=== PATIENT | female | born 1990 | race Caucasian/White ===

== ENCOUNTER 2019-09-21 15:11 | Emergency (ER) | payer MEDICAID ==
[~2019-09-21] VITALS: Ht 165.1 cm; Wt 80.5 kg
[~2019-09-21 15:11] MED LIST: ACET1TAB43 PO; ACYC200C PO; BIRTH CONTROL; CALC; CALCIUM; CEPH500C PO; CPH500CIP PO; CRS350T PO; DIAZ5TAB3 PO; DOCU100C37 PO; FERR-57 PO; FERR-84 PO; FERR325T18 PO; FLUO10CA19; HYDR-229 PO; HYDR-3714 PO; HYDR1TAB PO; HYDR1TAB86; IBP600T1 PO; IBP800T; IBUP-1773 PO; METR500T PO; NAPR-243 PO; NORG1TAB; OMG1KC; ONDA8TAB9 PO; PHEN200T27 PO; PNV1TABL67 PO; PREN-93 PO; PREN1TAB19 PO; PREN1TAB39 PO; PREN1TAB71 PO; PRM25T; PRM25T PO; TRM50T PO; VITA100C15; VITA600C3
[2019-09-21 16:00] LABS: BASOPHILS % (AUTO) 0 % (0-10); EOSINOPHILS # (AUTO) 0.1 10^3/uL (0.0-0.3); EOSINOPHILS % (AUTO) 1 % (0-10); HEMATOCRIT 43 % (35-52); HEMOGLOBIN 14.7 G/DL (11.5-16.0); LYMPHOCYTES # (AUTO) 2.6 X 10^3 (1.0-4.0); LYMPHOCYTES % (AUTO) 32 % (12-44); MEAN CORPUSCULAR HEMOGLOBIN 29 PG (25-34); MEAN CORPUSCULAR HGB CONC 34 G/DL (32-36); MEAN CORPUSCULAR VOLUME 86 FL (80-99); MEAN PLATELET VOLUME 10.1 FL (7.4-10.4); MONOCYTES # (AUTO) 0.6 X 10^3 (0.0-1.0); MONOCYTES % (AUTO) 8 % (0-12); NEUTROPHILS # (AUTO) 4.7 X 10^3 (1.8-7.8); NEUTROPHILS % (AUTO) 59 % (42-75); PLATELET COUNT 337 10^3/uL (130-400); RED CELL DISTRIBUTION WIDTH 13.8 % (10.0-14.5)
[2019-09-21 16:00] LABS: BILIRUBIN,URINE NEGATIVE (NEGATIVE); CLARITY,URINE CLEAR; COLOR,URINE YELLOW; GLUCOSE, URINE (UA) NEGATIVE (NEGATIVE); KETONES,URINE NEGATIVE (NEGATIVE); LEUKOCYTE ESTERASE ,URINE NEGATIVE (NEGATIVE); NITRITE,URINE NEGATIVE (NEGATIVE); PH,URINE 6.5 (5-9); PROTEIN,URINE NEGATIVE (NEGATIVE)
[2019-09-21] MEDS ORDERED: LACTATED RINGERS 1,000 ML IV SCH (16:00)
[2019-09-21] MEDS ORDERED: PROCHLORPERAZINE 10 MG/2ML INJ (COMPAZINE) IV ONE (16:00)
[2019-09-21] MEDS ORDERED: diphenhydrAMINE 50 MG/ML INJ (BENADRYL) IVP ONE (16:00)
--- NOTE | 2019-09-21 16:04 | ED GI ---
General Chief Complaint: Abdominal/GI Problems Stated Complaint: NAUSEA, VOMITING Nursing Triage Note: Pt amb to triage with c/o nausea, vomiting, and diarrhea. Pt reports symptoms have been persistant for x3 days (09/18/19). Pt reports she was seen @ Dr. Gonzalez office on 09/20/19 where he gave her IM zofran and referred her to this ED if s/s continued. Denies fever or chills. Sepsis Screen: No Definite Risk Source of Information: Patient Exam Limitations: No Limitations History of Present Illness Date Seen by Provider: Sep 21, 2019 Time Seen by Provider: 15:59 Initial Comments Has been taking oral Zofran at home intermittently for the past 2 months without much relief. She does smoke marijuana, states she used to smoke it daily, now she is only smoking at about twice a week. She denies any improvement with hot showers Timing/Duration: Other (2months) Severity/Quality: Moderate Location: Other Radiation: No Radiation Activities at Onset: None Associated Symptoms: Nausea/Vomiting Allergies and Home Medications Allergies Coded Allergies: morphine (Unverified Allergy, Mild, vomiting, 12/01/09) aspirin (Unverified Allergy, Unknown, 03/24/15) Home Medications Docusate Sodium 100 Mg Capsule, 100 MG PO BID PRN for CONSTIPATION Prescribed by: ÁNGELA MUKHERJEE on 07/24/16325 Ferrous Sulfate 325 Mg Tablet, 325 MG PO BID Prescribed by: MILENA CA on 07/25/16 0633 Ibuprofen 600 Mg Tablet, 600 MG PO Q6H Prescribed by: ÁNGELA MUKHERJEE on 07/24/16325 Pnv with Ca,No.72/Iron/FA 1 Each Tablet, 1 EA PO DAILY@0700 Prescribed by: ÁNGELA UMKHERJEE on 07/24/16325 Vit/Iron Fumarate/FA 1 Each Tablet, 1 EACH PO DAILY, (Reported) Patient Home Medication List Home Medication List Reviewed: Yes Review of Systems Review of Systems Constitutional: see HPI; No chills, No fever EENTM: No Symptoms Reported Respiratory: No Symptoms Reported Gastrointestinal: See HPI; Denies Abdominal Pain; Diarrhea, Nausea; Denies Vomiting Genitourinary: No Symptoms Reported Musculoskeletal: no symptoms reported Skin: no symptoms reported Psychiatric/Neurological: No Symptoms Reported Endocrine: No Symptoms Reported Hematologic/Lymphatic: No Symptoms Reported Past Oiftwei-Dywykd-Awnhzm Hx Patient Social History Alcohol Use: Rarely Uses Number of Drinks Today: 0 Recreational Drug Use: Yes Drug of Choice: thc Smoking Status: Current Everyday Smoker Type Used: Cigarettes 2nd Hand Smoke Exposure: Yes Recent Foreign Travel: No Contact w/Someone Who Travel: No Recent Infectious Disease Expo: No Recent Hopitalizations: Yes (PSYCH PROBLEMS (SEE PSYCH HISTORY)) Immunizations Up To Date Tetanus Booster (TDap): Less than 5yrs Seasonal Allergies Seasonal Allergies: No Past Medical History Surgeries: Yes (cyst removed from rt ovary) Appendectomy, Gallbladder Respiratory: No Cardiac: No Neurological: No Reproductive Disorders: No Female Reproductive Disorders: Denies Sexually Transmitted Disease: Yes (CHLAMYDIA X2, HSV) HIV/AIDS: No Gastrointestinal: No Musculoskeletal: Yes Scoliosis Endocrine: Yes (possible thyroid problem, HYPOGLYCEMIC) Loss of Vision: Denies Hearing Impairment: Denies Cancer: No Psychosocial: Yes (BiPolar) Anxiety, Depression Integumentary: Yes Herpes Blood Disorders: No Adverse Reaction/Blood Tranf: No Family Medical History AIDS 19 FATHER Asthma 03 MOTHER maternal grandma Cancer maternal grandpa Cardiovascular disease 03 MOTHER (Heart Attack at age 32) Colon cancer paternal grandfather Family history: Diabetes mellitus maternal grandma Family history: Hypertension Hypertension maternal grandma maternal grandpa Myocardial infarction 03 MOTHER, Onset:32 Psychosocial problem 03 MOTHER (Bipolar) maternal grandpa (Depression) Substance abuse maternal grandpa 19 FATHER Physical Exam Vital Signs Vital Signs - First Documented 09/21/19 15:16 Temp 37.0 Pulse 97 Resp 15 B/P (MAP) 146/92 (110) O2 Delivery Room Air Capillary Refill : Less Than 3 Seconds Height/Weight/BMI Height: 5'6.00" Weight: 160lbs. 4.0oz. 72.316319gd; 29.00 BMI Method:Estimated General Appearance: WD/WN, no apparent distress HEENT: PERRL/EOMI, normal ENT inspection Neck: non-tender, full range of motion Respiratory: normal breath sounds, no respiratory distress, no accessory muscle use Cardiovascular: regular rate, rhythm, no murmur Gastrointestinal: normal bowel sounds, soft; No tenderness Extremities: normal range of motion, non-tender Neurologic/Psychiatric: alert, normal mood/affect, oriented x 3 Skin: normal color, warm/dry Progress/Results/Core Measures Results/Orders Lab Results Laboratory Tests Test 09/21/19 15:30 09/21/19 15:35 Range/Units Urine Color YELLOW Urine Clarity CLEAR Urine pH 6.5 5-9 Urine Specific [place] 1.020 1.016-1.022 Urine Protein NEGATIVE NEGATIVE Urine Glucose (UA) NEGATIVE NEGATIVE Urine Ketones NEGATIVE NEGATIVE Urine Nitrite NEGATIVE NEGATIVE Urine Bilirubin NEGATIVE NEGATIVE Urine Urobilinogen 0.2 < = 1.0 MG/DL Urine Leukocyte Esterase NEGATIVE NEGATIVE Urine RBC (Auto) NEGATIVE NEGATIVE Urine RBC NONE /HPF Urine WBC NONE /HPF Urine Squamous Epithelial Cells 5-10 /HPF Urine Crystals NONE /LPF Urine Bacteria TRACE /HPF Urine Casts NONE /LPF Urine Mucus SMALL H /LPF Urine Culture Indicated NO White Blood Count 8.0 4.3-11.0 10^3/uL Red Blood Count 5.01 4.35-5.85 10^6/uL Hemoglobin 14.7 11.5-16.0 G/DL Hematocrit 43 35-52 % Mean Corpuscular Volume 86 80-99 FL Mean Corpuscular Hemoglobin 29 25-34 PG Mean Corpuscular Hemoglobin Concent 34 32-36 G/DL Red Cell Distribution Width 13.8 10.0-14.5 % Platelet Count 337 130-400 10^3/uL Mean Platelet Volume 10.1 7.4-10.4 FL Neutrophils (%) (Auto) 59 42-75 % Lymphocytes (%) (Auto) 32 12-44 % Monocytes (%) (Auto) 8 0-12 % Eosinophils (%) (Auto) 1 0-10 % Basophils (%) (Auto) 0 0-10 % Neutrophils # (Auto) 4.7 1.8-7.8 X 10^3 Lymphocytes # (Auto) 2.6 1.0-4.0 X 10^3 Monocytes # (Auto) 0.6 0.0-1.0 X 10^3 Eosinophils # (Auto) 0.1 0.0-0.3 10^3/uL Basophils # (Auto) 0.0 0.0-0.1 10^3/uL Sodium Level 139 135-145 MMOL/L Potassium Level 3.6 3.6-5.0 MMOL/L Chloride Level 106 98-107 MMOL/L Carbon Dioxide Level 23 21-32 MMOL/L Anion Gap 10 5-14 MMOL/L Blood Urea Nitrogen 6 L 7-18 MG/DL Creatinine 0.83 0.60-1.30 MG/DL Estimat Glomerular Filtration Rate > 60 BUN/Creatinine Ratio 7 Glucose Level 84 70-105 MG/DL Calcium Level 9.2 8.5-10.1 MG/DL Corrected Calcium 8.5-10.1 MG/DL Total Bilirubin 0.5 0.1-1.0 MG/DL Aspartate Amino Transf (AST/SGOT) 20 5-34 U/L Alanine Aminotransferase (ALT/SGPT) 18 0-55 U/L Alkaline Phosphatase 58 40-136 U/L Total Protein 7.3 6.4-8.2 GM/DL Albumin 4.6 H 3.2-4.5 GM/DL Lipase 42 8-78 U/L Serum Test, Qualitative NEGATIVE NEGATIVE My Orders Orders - FRANCIS PATINO APRN Cbc With Automated Diff (09/21/19 15:50) Comprehensive Metabolic Panel (09/21/19 15:50) Lipase (09/21/19 15:50) Ua Culture If Indicated (09/21/19 15:50) Hcg,Qualitative Serum (09/21/19 15:50) Lactated Ringers (Lr 1000 Ml Iv Solution (09/21/19 16:00) Prochlorperazine Injection (Compazine In (09/21/19 16:00) Diphenhydramine Injection (Benadryl Inje (09/21/19 16:00) Medications Given in ED Current Medications Medications Dose Ordered Sig/Adarsh Route Start Time Stop Time Status Last Admin Dose Admin Diphenhydramine HCl 25 mg ONCE ONCE IVP 09/21/19 16:00 09/21/19 16:01 DC 09/21/19 15:57 25 MG Prochlorperazine Edisylate 5 mg ONCE ONCE IV 09/21/19 16:00 09/21/19 16:01 DC 09/21/19 15:58 5 MG Vital Signs/I&O 09/21/19 15:16 Temp 37.0 Pulse 97 Resp 15 B/P (MAP) 146/92 (110) O2 Delivery Room Air Blood Pressure Mean: 110 POS Departure Impression Primary Impression: Nausea and vomiting Qualified Codes: R11.2 - Nausea with vomiting, unspecified Disposition: 01 HOME, SELF-CARE Condition: Stable Departure-Patient Inst. Decision time for Depature: 16:42 Referrals: [facility] (PCP/Family) Primary Care Physician KAVON CROUCH BRETT D DO KIDO, TAKAAKI MD Patient Instructions: No Instuctions Given Add. Discharge Instructions: 1. Return to ER for any concerns 2. Follow-up with your doctor next week 3. Call one of the surgeons listed if nausea persists to discuss an upper GI scope if they feel this is appropriate. All discharge instructions reviewed with patient and/or family. Voiced understanding. Scripts Prochlorperazine Maleate (Compazine) 25 Mg Supp.rect 25 MG RC TID PRN for NAUSEA/VOMITING, #10 SUPP.RECT Prov: FRANCIS PATINO APRN 09/21/19 Prochlorperazine Maleate (Compazine) 10 Mg Tablet 10 MG PO TID PRN for NAUSEA/VOMITING, #10 TAB Prov: FRANCIS PATINO APRN 09/21/19 Pantoprazole Sodium (Protonix) 40 Mg Tablet.dr 40 MG PO DAILY, #30 TAB Prov: FRANCIS PATINO APRN 09/21/19 Work/School Note: Work Release Form Date Seen in the Emergency Department: Sep 21, 2019 Return to Work: Sep 22, 2019 FRANCIS PATINO APRN Sep 21, 2019 16:04 POS
[2019-09-21 16:14] LABS: ALANINE AMINOTRANSFERASE 18 U/L (0-55); ALBUMIN 4.6 GM/DL (3.2-4.5); ALKALINE PHOSPHATASE 58 U/L (40-136); BILIRUBIN,TOTAL 0.5 MG/DL (0.1-1.0); BUN/CREATININE RATIO 7; CALCIUM 9.2 MG/DL (8.5-10.1); CARBON DIOXIDE 23 MMOL/L (21-32); CHLORIDE 106 MMOL/L (98-107); CREATININE SERUM 0.83 MG/DL (0.60-1.30); GFR ESTIMATED > 60; GLUCOSE 84 MG/DL (70-105); LIPASE 42 U/L (8-78); POTASSIUM 3.6 MMOL/L (3.6-5.0); SODIUM 139 MMOL/L (135-145); TOTAL PROTEIN 7.3 GM/DL (6.4-8.2)
[2019-09-21 16:20] LABS: BACTERIA,URINE TRACE /HPF
[2019-09-21] MEDS ORDERED: PANT40TA2 PO (16:45)
[2019-09-21] MEDS ORDERED: PROC25SU27 RC (16:45)
[2019-09-21] MEDS ORDERED: PROC-1 PO (16:45)
[2019-09-21 16:54] VITALS: BP 116/79
== END 2019-09-21 16:54 | disposition home or self-care (01) ==
LOC: EDUNIT# 15:11 → ER 15:14
DX: R11.2 Nausea with vomiting, unspecified (principal); F41.9 Anxiety disorder, unspecified; F31.9 Bipolar disorder, unspecified; F17.210 Nicotine dependence, cigarettes, uncomplicated; Z88.5 Allergy status to narcotic agent; Z88.6 Allergy status to analgesic agent; Z90.49 Acquired absence of other specified parts of digestive tract; Z82.49 Family history of ischemic heart disease and other diseases of the circulatory system; Z80.0 Family history of malignant neoplasm of digestive organs
CPT/HCPCS: 36415; 80053; 81000; 83690; 84703; 85025

== ENCOUNTER 2021-02-24 02:43 | Emergency (ER) | payer MEDICAID ==
[~2021-02-24] VITALS: Ht 162.6 cm; Wt 79.4 kg
[~2021-02-24 02:43] MED LIST changes: -DIAZ5TAB3 PO; +DIAZ5TAB49 PO; +PANT40TA2 PO; +PROC-1 PO; +PROC25SU27 RC
--- NOTE | 2021-02-24 03:05 | ED Head Injury ---
General Chief Complaint: Head/Cervical Problems Stated Complaint: HEAD INJ, BLEEDING FROM HEAD,LOC Source: patient, family Exam Limitations: no limitations History of Present Illness Date Seen by Provider: February 24, 2021 Time Seen by Provider: 02:55 Initial Comments Patient is a 31-year-old female who presents to the emergency department today with a chief complaint of fall, loss of consciousness and laceration to the face. Patient had been drinking this evening at a green party and went to the bathroom. She states that she believes she tripped over a step in the bathroom and fell. Significant other is present at the bedside and states that she was definitely unconscious when he found her. Reportedly it was brief. Patient denies any nausea. She does have a headache that extends from "presybeterian to presybeterian". Patient does not have any past medical history to speak of. She is not on blood thinners. She does not have any vision changes. She denies neck pain. No other complaints of injury. All other review of systems reviewed and negative except as stated above. Occurred: just prior to arrival Severity: moderate Location: frontal Method of Injury: fell Loss of Consciousness: brief (seconds) Associated Systoms: Headaches Allergies and Home Medications Allergies Coded Allergies: morphine (Unverified Allergy, Mild, vomiting, 12/01/09) aspirin (Unverified Allergy, Unknown, 03/24/15) Home Medications Docusate Sodium 100 Mg Capsule, 100 MG PO BID PRN for CONSTIPATION Prescribed by: ÁNGELA MUKHERJEE on 07/24/16325 Ferrous Sulfate 325 Mg Tablet, 325 MG PO BID Prescribed by: MILENA CA on 07/25/16 0633 Ibuprofen 600 Mg Tablet, 600 MG PO Q6H Prescribed by: ÁNGELA MUKHERJEE on 07/24/16325 Pantoprazole Sodium 40 Mg Tablet.dr, 40 MG PO DAILY Prescribed by: FRANCIS PATINO on 09/21/191644 Pnv with Ca,No.72/Iron/FA 1 Each Tablet, 1 EA PO DAILY@0700 Prescribed by: ÁNGELA MUKHERJEE on 07/24/16325 Vit/Iron Fumarate/FA 1 Each Tablet, 1 EACH PO DAILY, (Reported) Prochlorperazine Maleate 10 Mg Tablet, 10 MG PO TID PRN for NAUSEA/VOMITING Prescribed by: FRANCIS PATINO on 09/21/191644 Prochlorperazine Maleate 25 Mg Supp.rect, 25 MG RC TID PRN for NAUSEA/VOMITING Prescribed by: FRANCIS PATINO on 09/21/19 6324 Patient Home Medication List Home Medication List Reviewed: Yes Review of Systems Review of Systems Constitutional: see HPI Eyes: No Symptoms Reported Ears, Nose, Mouth, Throat: no symptoms reported Respiratory: no symptoms reported Cardiovascular: no symptoms reported Gastrointestinal: no symptoms reported Genitourinary: no symptoms reported Musculoskeletal: no symptoms reported Skin: other (Laceration) Psychiatric/Neurological: Headache All Other Systems Reviewed Negative Unless Noted: Yes Past Kiwpzdr-Tmjkms-Scnodh Hx Patient Social History Drug of Choice: thc Type Used: Cigarettes 2nd Hand Smoke Exposure: Yes Recent Hopitalizations: Yes (PSYCH PROBLEMS (SEE PSYCH HISTORY)) Immunizations Up To Date Tetanus Booster (TDap): Less than 5yrs Seasonal Allergies Seasonal Allergies: No Past Medical History Surgeries: Yes (cyst removed from rt ovary) Appendectomy, Gallbladder Respiratory: No Cardiac: No Neurological: No Reproductive Disorders: No Female Reproductive Disorders: Denies Sexually Transmitted Disease: Yes (CHLAMYDIA X2, HSV) HIV/AIDS: No Gastrointestinal: No Musculoskeletal: Yes Scoliosis Endocrine: Yes (possible thyroid problem, HYPOGLYCEMIC) Loss of Vision: Denies Hearing Impairment: Denies Cancer: No Psychosocial: Yes (BiPolar) Anxiety, Depression Integumentary: Yes Herpes Blood Disorders: No Adverse Reaction/Blood Tranf: No Family Medical History AIDS 19 FATHER Asthma 03 MOTHER maternal grandma Cancer maternal grandpa Cardiovascular disease 03 MOTHER (Heart Attack at age 32) Colon cancer paternal grandfather Family history: Diabetes mellitus maternal grandma Family history: Hypertension Hypertension maternal grandma maternal grandpa Myocardial infarction 03 MOTHER, Onset:32 Psychosocial problem 03 MOTHER (Bipolar) maternal grandpa (Depression) Substance abuse maternal grandpa 19 FATHER Physical Exam Vital Signs Vital Signs - First Documented 02/24/21 02:45 Temp 35.4 Pulse 97 Resp 16 B/P (MAP) 132/81 (98) Pulse Ox 99 O2 Delivery Room Air Capillary Refill : Height, Weight, BMI Height: 5'6.00" Weight: 160lbs. 4.0oz. 72.431399zv; 29.00 BMI Method:Estimated General Appearance: WD/WN, no apparent distress HEENT: PERRL/EOMI, normal ENT inspection, TMs normal Neck: non-tender, full range of motion, supple, normal inspection Cardiovascular: regular rate, rhythm Respiratory: lungs clear, normal breath sounds, no respiratory distress, no accessory muscle use Gastrointestinal: non tender, soft Extremities: non-tender, normal inspection Psychiatric: alert, oriented x 3 Crainal Nerves: normal hearing, normal speech, PERRL Coordination/Gait: normal gait Motor/Sensory: no motor deficit, no sensory deficit Skin: normal color, warm/dry, other (4 cm laceration just above the nasal bridge angulated extending to the galea) Eddie Coma Score Best Eye Response: (4) Open Spontaneously Best Verbal Response: (5) Oriented Best Motor Response: (6) Obeys Commands Procedures/Interventions Wound Location: Face Other Wound Location Forehead just above the nasal bridge Wound Length (cm): 4 Wound's Depth, Shape: superficial, into muscle, linear Wound Explored: clean Irrigated w/ Saline (ccs): 200 Betadine Prep?: Yes Anesthesia: Lidocaine w/ Epi Volume Anesthetic (ccs): 6 Suture: Prolene, Vicryl (4-0) Suture Size: 6-0 Number of Sutures: 7 Layer Closure?: 3 Number Deep Layer Sutures: 7 Sterile Dressing Applied?: No Progress 3 layered closure with 4-0 Vicryl sutures used to close the galea times 4 sutures. Subcu tissues were approximated with three 4-0 Vicryl sutures. Skin was closed with 6-0 Prolene times 7 sutures Patient tolerated the procedure very well. Good hemostasis was achieved. Skin came together nicely Progress/Results/Core Measures Results/Orders My Orders Orders - ANUM GOODRICH MD Ct Head Wo (02/24/21 03:01) Dipht,Pertuss(Acell),Tet Adult (Boostrix (02/24/21 03:15) Medications Given in ED Current Medications Medications Dose Ordered Sig/Adarsh Route Start Time Stop Time Status Last Admin Dose Admin Diphtheria/ Tetanus/Acell Pertussis 0.5 ml ONCE ONCE IM 02/24/21 03:15 02/24/21 03:16 DC 02/24/21 03:33 0.5 ML Vital Signs/I&O 02/24/21 02:45 Temp 35.4 Pulse 97 Resp 16 B/P (MAP) 132/81 (98) Pulse Ox 99 O2 Delivery Room Air Diagnostic Imaging Diagonstic Imaging: CT Plain Films/CT/US/NM/MRI: head Comments No acute intracranial abnormality identified on CT scan of the head without contrast Departure Impression Primary Impression: Facial laceration Qualified Codes: S01.81XA - Laceration without foreign body of other part of head, initial encounter Additional Impression: Concussion Qualified Codes: S06.0X1A - Concussion with loss of consciousness of 30 minutes or less, initial encounter Disposition: 01 HOME, SELF-CARE Condition: Stable Departure-Patient Inst. Decision time for Depature: 05:06 Referrals: [facility] [place] NO,LOCAL PHYSICIAN (PCP) Primary Care Physician Patient Instructions: Laceration Repair With Stitches ED, Concussion, Adult (DC) Add. Discharge Instructions: Drink plenty of fluids to stay well-hydrated. Take [id number] Tylenol extra strength, 2 tablets every 4-6 hours as needed for headache/pain. Limit your time on electronics, phone use, television for the next 24 to 48 h ours. This will help decrease the severity of headaches. Come back to the emergency room in 5 or 6 days to have your stitches removed. If you develop significant redness, swelling, drainage or fever please come back sooner to the emergency room for reevaluation. ANUM GOODRICH MD February 24, 2021 03:05
[2021-02-24] MEDS ORDERED: TETANUS,DIPTH,PERTUSS P/F (BOOSTRIX) 0.5 ML VIAL IM ONE (03:15)
[2021-02-24] MEDS ORDERED: ACETAMINOPHEN 500 MG TAB (TYLENOL) PO ONE (05:15)
[2021-02-24 05:18] VITALS: BP 131/70
--- NOTE | 2021-02-24 08:48 | Diagnostic Imaging Report ---
PROCEDURE: CT head without contrast. TECHNIQUE: Multiple contiguous axial images were obtained through the brain without the use of intravenous contrast. Auto Exposure Controls were utilized during the CT exam to meet ALARA standards for radiation dose reduction. DATE: February 24, 2021. COMPARISON: CT head and maxillofacial areas July 25, 2014. INDICATION: 31-year-old female, fall. Laceration to the forehead. FINDINGS: There is gas in the scalp in the region of the forehead with mild inflammatory stranding consistent with a penetrating type injury and small contusion. There is no identified radiopaque foreign body. There is no identified skull fracture. The ventricles and cerebral spinal fluid spaces are of normal size and configuration for the patient's age. There is no mass effect or midline shift. There is no acute intracranial hemorrhage. There is no abnormal extra-axial fluid collection. The visualized portions of the paranasal sinuses, mastoid air cells and middle ears are well aerated. IMPRESSION: 1. Soft tissue gas in the region of the forehead with mild inflammatory stranding consistent with a penetrating type injury and small contusion. 2. No identified skull fracture. 3. No identified acute intracranial abnormality. Dictated by: Dictated on workstation # [id number]
== END 2021-02-24 05:18 | disposition home or self-care (01) ==
LOC: EDUNIT# 02:43 → ER 02:45
DX: S06.0X9A Concussion with loss of consciousness of unspecified duration, initial encounter (principal); S01.81XA Laceration without foreign body of other part of head, initial encounter; F41.9 Anxiety disorder, unspecified; Z88.5 Allergy status to narcotic agent; Z88.8 Allergy status to other drugs, medicaments and biological substances; Z23 Encounter for immunization; Z77.22 Contact with and (suspected) exposure to environmental tobacco smoke (acute) (chronic); Z79.899 Other long term (current) drug therapy; W18.2XXA Fall in (into) shower or empty bathtub, initial encounter
CPT/HCPCS: 70450; 90715

== ENCOUNTER 2021-03-01 14:48 | Emergency (ER) | payer MEDICAID ==
[~2021-03-01] VITALS: Ht 162.5 cm; Wt 81.6 kg
[2021-03-01 14:57] VITALS: BP 125/86
== END 2021-03-01 15:03 | disposition home or self-care (01) ==
LOC: EDUNIT# 14:48 → ER 14:50
DX: Z48.02 Encounter for removal of sutures (principal)

== ENCOUNTER 2021-03-11 20:22 | Emergency (ER) | payer MEDICAID ==
[~2021-03-11] VITALS: Ht 162 cm; Wt 82.7 kg
--- NOTE | 2021-03-11 21:12 | ED General ---
General Chief Complaint: Cardiac/General Problems Stated Complaint: HIGH BP 191/118 Nursing Triage Note: reports intermittant high blood pressure/weakness x1 week. Nursing Sepsis Screen: No Definite Risk Source of Information: Patient Exam Limitations: No Limitations History of Present Illness Date Seen by Provider: March 11, 2021 Time Seen by Provider: 20:50 Initial Comments Patient is a 31-year-old who presents to the emergency department today with a chief complaint of intermittent high blood pressure over the course of the last week. Patient states that she was standing at her countertop this evening making dinner when she had a sudden onset of feeling "spacey" and not quite right. She got tremors and she felt generally weak. She states that she knows what hypoglycemia feels like and she felt different. She took her blood pressure and it was 191/118 on her home cuff that they have had for years. Patient has never been diagnosed with hypertension in the past. She denies chest pain, shortness of breath, abdominal pain. No severe headache no vision changes no unilateral numbness, weakness or tingling. No complaints of illness such as fevers, chills, cough, urinary complaints or GI complaints. She does state that she feels like she has been more thirsty than normal as of late. The last time she saw her primary care physician was at the onset of Covtn in the spring 2019. At that time she states she had basic laboratory studies done and all of them were normal. All other review of systems reviewed and negative except as stated. Timing/Duration: 1 Hour, 1 Day Associated Systoms: Denies Symptoms Allergies and Home Medications Allergies Coded Allergies: morphine (Unverified Allergy, Mild, vomiting, 12/01/09) aspirin (Unverified Allergy, Unknown, 03/24/15) Patient Home Medication List Home Medication List Reviewed: Yes Review of Systems Review of Systems Constitutional: see HPI, malaise EENTM: no symptoms reported Respiratory: no symptoms reported Cardiovascular: no symptoms reported Gastrointestinal: no symptoms reported Genitourinary: no symptoms reported Musculoskeletal: no symptoms reported Skin: no symptoms reported Psychiatric/Neurological: Paresthesia, Tremors All Other Systems Reviewed Negative Unless Noted: Yes Past Ugvdpji-Xhgblm-Mlcewq Hx Patient Social History Alcohol Use: Occasionally Uses Number of Drinks Today: AA Alcohol Beverage of Choice: Beer, Wine Drug of Choice: cannibus Smoking Status: Current Everyday Smoker Type Used: Cigarettes 2nd Hand Smoke Exposure: Yes Recent Infectious Disease Expo: No Recent Hopitalizations: No Immunizations Up To Date Tetanus Booster (TDap): Unknown Seasonal Allergies Seasonal Allergies: No Past Medical History Surgeries: Yes (cyst removed from rt ovary) Appendectomy, Gallbladder Respiratory: No Cardiac: No Neurological: No : No Reproductive Disorders: No Female Reproductive Disorders: Ovarian Cyst Sexually Transmitted Disease: Yes (CHLAMYDIA X2, HSV) HIV/AIDS: No Genitourinary: No Gastrointestinal: Yes Gall Bladder Disease Musculoskeletal: Yes Scoliosis Endocrine: Yes (possible thyroid problem, HYPOGLYCEMIC) HEENT: No Loss of Vision: Denies Hearing Impairment: Denies Cancer: No Psychosocial: Yes (BiPolar) Anxiety, Depression Integumentary: Yes Herpes Blood Disorders: No Adverse Reaction/Blood Tranf: No Family Medical History AIDS 19 FATHER Asthma 03 MOTHER maternal grandma Cancer maternal grandpa Cardiovascular disease 03 MOTHER (Heart Attack at age 32) Colon cancer paternal grandfather Family history: Diabetes mellitus maternal grandma Family history: Hypertension Hypertension maternal grandma maternal grandpa Myocardial infarction 03 MOTHER, Onset:32 Psychosocial problem 03 MOTHER (Bipolar) maternal grandpa (Depression) Substance abuse maternal grandpa 19 FATHER Physical Exam Vital Signs Vital Signs - First Documented 03/11/21 20:37 Temp 36.8 Pulse 82 Resp 18 B/P (MAP) 139/84 (102) Pulse Ox 98 O2 Delivery Room Air Capillary Refill : Less Than 3 Seconds Height, Weight, BMI Height: 5'6.00" Weight: 160lbs. 4.0oz. [id number]; 31.00 BMI Method:Actual General Appearance: No Apparent Distress, WD/WN HEENT: Normal ENT Inspection Neck: Full Range of Motion Respiratory: Lungs Clear, Normal Breath Sounds, No Accessory Muscle Use, No Respiratory Distress Cardiovascular: Regular Rate, Rhythm Gastrointestinal: Normal Bowel Sounds, Non Tender, Soft Extremity: Normal Capillary Refill, Normal Inspection, Normal Range of Motion Neurologic/Psychiatric: Alert, Oriented x3, No Motor/Sensory Deficits, Normal Mood/Affect, bobbin washer II-XII Norm as Tested Skin: Normal Color, Warm/Dry Procedures/Interventions Suture Size: 6-0 Progress/Results/Core Measures Suspected Sepsis Recent Fever Within 48 Hours: No Infection Criteria Present: None New/Unexplained Altered Menta: No Sepsis Screen: No Definite Risk SIRS Temperature: Pulse: 82 Respiratory Rate: 18 Blood Pressure 139 /84 Mean: 102 Laboratory Tests 03/11/21 21:15: Creatinine 0.90 Results/Orders Lab Results Laboratory Tests Test 03/11/21 21:15 Range/Units Sodium Level 138 135-145 MMOL/L Potassium Level 3.7 3.6-5.0 MMOL/L Chloride Level 106 98-107 MMOL/L Carbon Dioxide Level 23 21-32 MMOL/L Anion Gap 9 5-14 MMOL/L Blood Urea Nitrogen 7 7-18 MG/DL Creatinine 0.90 0.60-1.30 MG/DL Estimat Glomerular Filtration Rate > 60 BUN/Creatinine Ratio 8 Glucose Level 76 70-105 MG/DL Calcium Level 9.2 8.5-10.1 MG/DL My Orders Orders - ANUM GOODRICH MD Basic Metabolic Panel (03/11/21 21:05) Vital Signs/I&O 03/11/21 20:37 Temp 36.8 Pulse 82 Resp 18 B/P (MAP) 139/84 (102) Pulse Ox 98 O2 Delivery Room Air Capillary Refill : Less Than 3 Seconds Blood Pressure Mean: 102 Departure Impression Primary Impression: History of high blood pressure Disposition: 01 HOME, SELF-CARE Condition: Stable Departure-Patient Inst. Decision time for Depature: 21:43 Referrals: OLIVIA WOODS MD (PCP/Family) Primary Care Physician Add. Discharge Instructions: Drink plenty of fluids to stay well-hydrated. Please obtain a new blood pressure cuff and monitor your blood pressure over the next week. Call and follow-up with your primary care physician. Come back to the emergency room for any new, concerning or emergent symptoms. Copy Copies To 1: OLIVIA WOODS MD, KATHRYN M MD March 11, 2021 21:12
[2021-03-11 21:43] LABS: BUN/CREATININE RATIO 8; CALCIUM 9.2 MG/DL (8.5-10.1); CARBON DIOXIDE 23 MMOL/L (21-32); CHLORIDE 106 MMOL/L (98-107); GFR ESTIMATED > 60; GLUCOSE 76 MG/DL (70-105); POTASSIUM 3.7 MMOL/L (3.6-5.0); SODIUM 138 MMOL/L (135-145)
[2021-03-11 21:52] VITALS: BP 112/71
== END 2021-03-11 21:54 | disposition home or self-care (01) ==
LOC: EDUNIT# 20:22 → ER 20:23
DX: R03.0 Elevated blood-pressure reading, without diagnosis of hypertension (principal); F17.210 Nicotine dependence, cigarettes, uncomplicated; Z88.5 Allergy status to narcotic agent; Z88.6 Allergy status to analgesic agent
CPT/HCPCS: 36415; 80048

== ENCOUNTER 2021-04-15 12:56 | Emergency (ER) | payer MEDICAID ==
[~2021-04-15] VITALS: Ht 165 cm; Wt 81.6 kg
[2021-04-15 13:12] VITALS: BP 159/80
--- NOTE | 2021-04-15 13:48 | ED General ---
General Chief Complaint: Dizziness/Syncope Stated Complaint: DIZZINESS, WEAKNESS, HEAD INJURY Nursing Triage Note: PT PRESENTS TO ED WITH COMPLAINTS OF INTERMITTENT DIZZINESS AND GENERALIZED FATIGUE SINCE SHE FELL ONE MONTH AGO AND HIT HER HEAD IN HER BATHROOM. PT REPORTS SHE WAS SEEN IN ED AFTER AND HAD A NORMAL CT SCAN. PT REPORTS SHE HAS SEEN HER DR LEA WELL WHEN THE DIZZINESS CONTINUED AND HAD ANOTHER CT SCAN THEN BUT WAS TOLD IT CAME BACK NORMAL. Nursing Sepsis Screen: No Definite Risk Source of Information: Patient, Other Exam Limitations: No Limitations History of Present Illness Date Seen by Provider: Apr 15, 2021 Time Seen by Provider: 13:17 Initial Comments Patient to the ER by private conveyance from home with her significant other and chief complaint for the past month she has been having panic attacks, tiredness, difficulty concentrating, off balance, irritable. About 1 month ago she was drinking for her brother's graduation democrat and lost her balance and passed out in the bathroom striking her forehead on tile. She had a negative CT and had to have stitches on her forehead. She continued to have concussion syndrome and went to Dr. Lea, her primary care provider who repeated the CT which was still negative. She says the symptoms are intermittent. 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 Her panic attacks have been characterized by feeling shaky, anxious, short of breath, rapid breathing, numbness and tingling around the mouth and fingertips and narrow vision. Allergies and Home Medications Allergies Coded Allergies: morphine (Unverified Allergy, Mild, vomiting, 12/01/09) aspirin (Unverified Allergy, Unknown, 03/24/15) Patient Home Medication List Home Medication List Reviewed: Yes Review of Systems Review of Systems Constitutional: No chills, No diaphoresis EENTM: No ear discharge, No ear pain Respiratory: No cough, No short of breath Cardiovascular: No chest pain, No edema Gastrointestinal: No abdominal pain, No nausea, No vomiting Genitourinary: No discharge, No dysuria Musculoskeletal: No back pain, No joint pain All Other Systems Reviewed Negative Unless Noted: Yes Past Imvrzxp-Tbmioc-Catjle Hx Patient Social History Alcohol Use: Occasionally Uses Number of Drinks Today: HH Alcohol Beverage of Choice: Beer, Wine Drug of Choice: cannibus Smoking Status: Current Everyday Smoker Type Used: Cigarettes 2nd Hand Smoke Exposure: Yes Recent Infectious Disease Expo: No Recent Hopitalizations: No Immunizations Up To Date Tetanus Booster (TDap): Unknown Seasonal Allergies Seasonal Allergies: No Past Medical History Surgeries: Yes (cyst removed from rt ovary) Appendectomy, Gallbladder Respiratory: No Cardiac: No Neurological: No Reproductive Disorders: No Female Reproductive Disorders: Ovarian Cyst Sexually Transmitted Disease: Yes (CHLAMYDIA X2, HSV) HIV/AIDS: No Genitourinary: No Gastrointestinal: Yes Gall Bladder Disease Musculoskeletal: Yes Scoliosis Endocrine: Yes (possible thyroid problem, HYPOGLYCEMIC) HEENT: No Loss of Vision: Denies Hearing Impairment: Denies Cancer: No Psychosocial: Yes (BiPolar) Anxiety, Depression Integumentary: Yes Herpes Blood Disorders: No Adverse Reaction/Blood Tranf: No Family Medical History AIDS 19 FATHER Asthma 03 MOTHER maternal grandma Cancer maternal grandpa Cardiovascular disease 03 MOTHER (Heart Attack at age 32) Colon cancer paternal grandfather Family history: Diabetes mellitus maternal grandma Family history: Hypertension Hypertension maternal grandma maternal grandpa Myocardial infarction 03 MOTHER, Onset:32 Psychosocial problem 03 MOTHER (Bipolar) maternal grandpa (Depression) Substance abuse maternal grandpa 19 FATHER Physical Exam Vital Signs Vital Signs - First Documented 04/15/21 13:12 Temp 36.9 Pulse 111 Resp 18 B/P (MAP) 159/80 (106) Pulse Ox 98 Capillary Refill : Less Than 3 Seconds Height, Weight, BMI Height: 5'6.00" Weight: 160lbs. 4.0oz. [id number]; 29.00 BMI Method:Actual General Appearance: No Apparent Distress, WD/WN HEENT: PERRL/EOMI, TMs Normal (Negative for castro sign), Pharynx Normal, Moist Mucous Membranes, Other (Well-healing scar/previous laceration over the forehead above the left eyebrow) Neck: Full Range of Motion, Normal Inspection, Non Tender, Supple Respiratory: Lungs Clear, Normal Breath Sounds, No Accessory Muscle Use, No Respiratory Distress Cardiovascular: Regular Rate, Rhythm, No Edema, Normal Peripheral Pulses Gastrointestinal: Non Tender, Soft Extremity: Normal Capillary Refill, Normal Inspection Neurologic/Psychiatric: Alert, Oriented x3, consumer loan processor II-XII Norm as Tested, Other (Anxious affect) Procedures/Interventions Suture Size: 6-0 Progress/Results/Core Measures Suspected Sepsis Recent Fever Within 48 Hours: No Infection Criteria Present: None New/Unexplained Altered Menta: No Sepsis Screen: No Definite Risk SIRS Temperature: Pulse: 111 Respiratory Rate: 18 Blood Pressure 159 /80 Mean: 106 Results/Orders Vital Signs/I&O 04/15/21 13:12 Temp 36.9 Pulse 111 Resp 18 B/P (MAP) 159/80 (106) Pulse Ox 98 Capillary Refill : Less Than 3 Seconds Blood Pressure Mean: 106 Progress Note : Time: 13:57 Progress Note This provider performed a significant amount of education about concussion management, panic attacks and encouraged her to use mindful breathing techniques, cognitive behavioral techniques that were taught to her here in the ER as well as Benadryl at the first sign of a repeat panic attack. We encouraged her to follow-up with her primary care doctor to consider a sleep study and other appropriate outpatient management. We have encouraged her to work on low stimuli environment for the next 2 to 3 days at home. Departure Impression Primary Impression: Post concussion syndrome Additional Impression: Panic attack Disposition: 01 HOME, SELF-CARE Condition: Stable Departure-Patient Inst. Decision time for Depature: 13:50 Referrals: OLIVIA LEA MD (PCP/Family) Primary Care Physician Patient Instructions: Postconcussion Syndrome (DC) Add. Discharge Instructions: I suspect your symptoms were related to a concussion that has not fully healed from your previous fall. For the next 2 to 3 days if you can get someone to watch her kids even if it is only for a few hours of the day to give you a chance to get a nice nap in this will help rest your brain and get you over your concussion sooner. Drink plenty of fluids. Tylenol or Motrin for headache. At the first sign of a anxiety attack such as narrowing vision, panic, heart racing, rapid breathing or numbness and tingling around your mouth or fingertips I would encourage you to remove yourself to a quiet, secluded area. Perform the mindful breathing exercises as we described them in the ER. You may use 1 table t, 25 mg of Benadryl every 6 hours as necessary to help bring down your anxiety as well at the first sign of a panic attack. Follow-up with Dr. Lea for further outpatient management of your symptoms. All discharge instructions reviewed with patient and/or family. Voiced understanding. Work/School Note: Work Release Form Date Seen in the Emergency Department: Apr 15, 2021 Return to Work: Apr 18, 2021 Restrictions: No Restrictions Copy Copies To 1: OLIVIA LEA MD, TITUS J Apr 15, 2021 13:48
== END 2021-04-15 14:06 | disposition home or self-care (01) ==
LOC: EDUNIT# 12:56 → ER 12:59
DX: F41.0 Panic disorder [episodic paroxysmal anxiety] (principal); F07.81 Postconcussional syndrome; F17.210 Nicotine dependence, cigarettes, uncomplicated; Z88.5 Allergy status to narcotic agent
CPT/HCPCS: 99283